=== PATIENT | male | born 1985 | race Caucasian/White ===

== ENCOUNTER 2021-03-20 05:21 | Emergency (ER) | payer OTHER ==
[~2021-03-20] VITALS: Ht 177.8 cm; Wt 69.9 kg
[2021-03-20] MEDS ORDERED: METHYLPREDNISOLONE SOD SUCC 125 MG/2ML VIAL IM ONE (05:45)
[2021-03-20] MEDS ORDERED: DIPHENHYDRAMINE HCL 25 MG CAP PO ONE (05:45)
[2021-03-20] MEDS ORDERED: METHYLPREDNISOLONE SOD SUCC 125 MG/2ML VIAL ONE (05:57)
[2021-03-20] MEDS ORDERED: DIPHENHYDRAMINE HCL 25 MG CAP ONE (05:58)
== END 2021-03-20 06:23 | disposition home or self-care (01) ==
LOC: ER 05:47
DX: R23.3 Spontaneous ecchymoses (principal); Y83.8 Other surgical procedures as the cause of abnormal reaction of the patient, or of later complication, without mention of misadventure at the time of the procedure
CPT/HCPCS: 99282; J2930